=== PATIENT | male | born 1945 | race Native Hawaiian/Other Pacific Islander ===

== ENCOUNTER 2016-12-08 21:45 | Inpatient (IN) | payer OTHER, MEDICAID ==
[~2016-12-08] VITALS: Ht 157.5 cm; Wt 71.4 kg
[2016-12-08 21:57] VITALS: BP 185/82; PULSE 75; RESP 18; O2SAT 98
--- NOTE | 2016-12-08 22:09 | ED.REPORT ---
HPI-Dyspnea / Wheezing Date of Service Dec 08, 2016 ED Provider: Gage Jasso MD Pt is a 71 y/o male w/ a hx of hyperlipidemia, DM, presenting to the ED with family who interprets c/o sharp substernal CP onset this morning. The patient began coughing yesterday which has persisted. He states his pain radiates throughout his entire body as is describes as sharp and only occurs with coughing. He c/o associated mild subjective fever, chills, nausea, mild peripheral edema. He denies vomiting, hemoptysis, phlegm production. He has never experienced this type of pain before. He recently traveled from the [facility] 1 month ago and a doctor there apparently told him he had "fluid in his lungs" about 2 months ago. He has no personal or family history of cardiovascular disease. Nursing Notes Stated Complaint: CHEST PAIN,COUGH,SOB Chief Complaint: Chest Pain Nursing Notes Reviewed: Yes ([employer], meds not reconciled) Allergies: Coded Allergies: No Known Allergies (Unverified , 12/08/16) General Time Seen by MD: 22:05 Chief Complaint Chest pain Hx Obtained From: Patient, Other family... Arrived By: Walk-in Sudden in Onset?: No Onset Occurred: 9 - 12 hours ago Symptom Duration: Since onset Location: : Substernal Quality: Painful, Sharp Severity: Current: Mild Severity: Maximum: Moderate Past Medical History Past Medical History Hyperlipidemia DM Peripheral edema Past Surgical History Denies Family History No FHx of cardiac disease Smoking History Never Smoker Ambulatory Status Independent Review of Systems Constitutional: Reports: Chills, Fever Respiratory: Reports: Non-productive cough, Pleuritic pain, Denies: Hemoptysis, Prod cough, green, Prod cough, yellow, Shortness of breath Cardiovascular: Reports: Chest pain, Edema, Denies: Dyspnea on exertion Musculoskeletal: Reports: Extremity swelling Complete sys rev & neg: except as marked. GI: Reports: Nausea, Denies: Abdominal pain, Vomiting Physical Exam Initial Vital Signs Vital Signs (First) Date Time Temp Pulse Resp B/P Pulse Ox O2 Delivery O2 Flow Rate FiO2 12/08/16 21:57 37.6 75 18 185/82 98 Room Air Initial VS: Reviewed, Vital signs abnormal (HTN) Head / Eyes: Atraumatic, Normocephalic, PERRL ENT: Mucous membranes moist, Conjunctiva normal, No scleral icterus Abdomen / GI: Soft, Non-tender, No guarding, No rebound, No distention Skin: Warm, Dry, No cyanosis Neurologic: Alert, Oriented, Nonfocal Psychiatric: Mood/affect normal, Behavior normal, Normal thought content General/Constitutional: Awake, Alert, No acute distress, Cooperative, Not toxic appearing Neck: Atraumatic, Supple, No meningismus, Full range of motion Respiratory / Chest: Atraumatic, No respiratory distress, No retractions, No stridor Crackles and rhonchi about the entire left lung Cardiovascular: Heart rate NL, Regular rhythm, Heart sounds NL, No gallop, No murmurs, No rubs, Cap refill not delayed Trace edema in legs Lower Extremity / Pelvis / MS: No erythema, No deformity, Neurologic intact, Vascular intact Trace edema bilat No findings to suggest DVT Interpretation & Diagnostics Lab Results Interpretation Result Diagram: 12/08/16211412/08/162114 Test 12/08/16 21:15 12/09/16 00:30 White Blood Count 7.4th/mm3 (3.8-10.1) Red Blood Count 4.94mil/mm3 (4.40-5.80) Hemoglobin 13.2g/dL (13.8-17.2) Hematocrit 40.1% (41.0-50.0) Mean Corpuscular Volume 81.2fL (81-100) Mean Corpuscular Hemoglobin 26.7pg (27.0-35.0) Mean Corpuscular Hemoglobin Concent 32.9% (32.0-37.0) Red Cell Distribution Width 14.3% (12.3-15.4) Platelet Count 233bil/L (150-400) Neutrophils (%) (Auto) 62.7% (40-74) Lymphocytes (%) (Auto) 20.0% (14-46) Monocytes (%) (Auto) 9.5% (4-12) Eosinophils (%) (Auto) 7.1% (0-5) Basophils (%) (Auto) 0.4% (0-3) D-Dimer 0.58mg/L FEU (<0.50) Sodium Level 135mEq/L (134-144) Potassium Level 4.9mEq/L (3.5-5.2) Chloride Level 98mEq/L (97-108) Carbon Dioxide Level 24mmol/L (18-29) Blood Urea Nitrogen 27mg/dL (8-27) Creatinine 1.70mg/dL (0.76-1.27) Estimat Glomerular Filtration Rate 42mL/min (>59) Glucose Level 156mg/dL (60-99) Calcium Level 8.7mg/dL (8.5-10.1) Magnesium Level 2.0mg/dL (1.6-2.6) Total Bilirubin 0.2mg/dL (0.0-1.2) Aspartate Amino Transf (AST/SGOT) 30U/L (0-50) Alanine Aminotransferase (ALT/SGPT) 18U/L (0-44) Alkaline Phosphatase 94U/L (25-160) Pro-B-Type Natriuretic Peptide 539.7pg/mL (0-376) Total Protein 8.0g/dL (6.4-8.4) Albumin 3.6g/dL (3.4-5.0) Hold Ramos Top Tube Received (Received) Lab Results Interpretation: CBC normal limits and CMP positive renal insufficiency, and daily unknown Troponin marginally elevated, partially secondary to elevated creatinine D-dimer age adjusted negative BNP moderately elevated ECG Interpretation Time: 22:27 Interpreted by: ED physician Normal ECG Interpretation: Normal ECG w/ rate of... (70), Normal rate, Normal sinus rhythm, No acute ischemic changes, Normal QRS, Normal axis, Normal intervals, Adequate tracing X-Ray Chest Interpretation View: Portable, 1 view Interpretation / Wet Read by: Wet read ED physician NL X-Ray Chest Findings: No infiltrate, No acute disease Re-Eval/Medical Decision Med Decision/Clinical Course This is a 71-year-old male who just moved here 4 weeks ago from the [facility] and speaks Armenian. He is brought with a complaint of chest discomfort, difficulty breathing, and a cough. 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 Apparently the patient does have some sort of cardiac history with a doctor in the [facility]' having told "there is fluid on his lungs". His current medications include furosemide and simvastatin. He denies any new leg swelling, but apparently has developed some shortness of breath, a sharp atypical chest pain, and a cough over the past 24 hours. He denies a sense of fever, may possibly have had some chills. All in all the history is very challenging to be certain. The patient clinically appears well. There is some scattered rales and trace rhonchi at the left base I thought, but I do not appreciate an infiltrate or gross abnormality on his chest x-ray. EKG is normal, without acute ischemic changes. His blood work however is complicated in that he does have a marginally elevated troponin, but is in the setting of a creatinine of 1.7, which itself is unknown acuity. Additionally his BMP is elevated. I think the patient is low risk for PE, but given her recent flight to the from the [facility] , in the setting of difficult to sort out chest pain, shortness of breath I d- dimer was obtained, and was negative in the setting of age adjustment. Given the challenges in language barrier, given the findings of an elevated troponin, renal insufficiency, and elevated BNP, given aspirin, and initial dose of furosemide. I think the patient's best served by being observed for serial enzymes and repeat evaluation given I cannot exclude a cardiac etiology, although overall the definitive cause of symptoms remains a bit unclear. Source of Hx: Old records (none in EMR) Re-Evaluation/Progress : Time of Eval: 00:06 Re-Evaluation/Progress Note: Pt rechecked. Informed pt of need for admission. Pt understands and agrees with plan for admission. All questions addressed. 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: Will see patient, Agrees with eval, Agrees with plan, Accepts admit Differential Diagnosis: Negative: Cardiogenic shock, Congestive heart failure, Foreign body airway, Hyperventilation, Inhalation injury, PSVT, Pneumonia, Pneumothorax, Pulmonary embolism, Respiratory failure Counseled Regarding: Diagnosis, Lab results, Need for admission Discharge & Departure Impression: Primary Impression: Chest pain Chest pain type: unspecified Qualified Code: R07.9 - Chest pain, unspecified Additional Impressions: Elevated troponin HTN (hypertension) Hypertension type: unspecified secondary hypertension Qualified Code: I15.9 - Secondary hypertension, unspecified Cough Renal insufficiency Disposition: ADMITTED TO HOSPITAL Discharge Condition All VS Reviewed: Yes Condition: Stable Scribe Attestation Portions of this note were transcribed by Jose Daniel Downey. I, Dr. Jasso personally performed the history, physical exam and medical decision-making; I reviewed and confirmed the accuracy of the information in the transcribed note. Signed by Jann Briscoe, 12/08/16 - 2229 Gage Jasso MD Dec 08, 2016 22:09 JOSE DANIEL DOWNEY Dec 08, 2016 22:21
[2016-12-08 22:29] LABS: BASOPHILS % (AUTO) 0.4 % (0-3); EOSINOPHILS % (AUTO) 7.1 % (0-5); MONOCYTES % (AUTO) 9.5 % (4-12); Mean Corpuscular Hemoglobin 26.7 pg (27.0-35.0); Mean Corpuscular Volume 81.2 fL (81-100); NEUTROPHILS % (AUTO) 62.7 % (40-74); Platelet Count 233 bil/L (150-400)
[2016-12-08 22:51] LABS: TROPONIN T 0.017 ug/L (0.0-0.011)
[2016-12-09] VITALS (10 sets, daily range): BP systolic 141–188; BP diastolic 75–97; PULSE 70–103; RESP 14–26; O2SAT 93–100
[2016-12-09] MEDS ORDERED: Furosemide 10 mg/mL 2 mL Inj IVPUSH ONE
[2016-12-09] MEDS ORDERED: Ondansetron 2 mg/mL 2 mL Inj IVPUSH PRN (00:10)
[2016-12-09] MEDS ORDERED: Alum-Mag Hydrox-Simeth 30 mL Suspension PO PRN (00:10)
[2016-12-09] MEDS ORDERED: Polyethylene Glycol (PEG) 17 Gm Powder PO PRN (00:10)
[2016-12-09] MEDS ORDERED: Senna-Docusate 8.6-50 mg Tablet PO PRN (00:10)
[2016-12-09] MEDS ORDERED: Atropine 1 mg/10 mL (Code) Syringe IVPUSH PRN (00:10)
--- NOTE | 2016-12-09 01:06 | PCM.HPMED ---
Subjective Date of Service Dec 09, 2016 Primary Provider: Admitting Physician: Tres Plata MD Primary Care Physician: Zonia Mancini MD Attending Physician: Tres Plata MD Admit Status: From the Emergency Department, 23-Hour Observation, [facility] Telemetry Chief Complaint: Chest pain History of Present Illness: Albert Johnson is a 71 yo Malaysian man with Hyperlipidemia, Diabetes type 2 , presenting to [facility] emergency department with family who interprets c/o sharp substernal CP onset this morning. Patient noted to be poor historian and family reporting changing stories. Chest pain was reported to be sharp, substernal but patient also pointing to his upper abdomen with no radiation. Intensity was mild with no clear exacerbating or alleviating factors. There is some reported coughing with some subjective fever. He has never experienced this type of pain before. He also complained of body aches He recently traveled from the [facility] 1 month ago and a doctor there apparently told him he had "fluid in his lungs" about 2 months ago. He has no personal or family history of cardiovascular disease. Case discussed with Dr Jasso, some troponin elevation. Plan to admit patient to trend troponin overnight. Review of Systems: Pertinent positives as noted in HPI. All other systems were reviewed and are negative Allergies Coded Allergies: No Known Allergies (Unverified , 12/08/16) Home Medications List not available but family will bring it in the morning PMH Hypertension Diabetes type 2 with peripheral neuropathy Hyperlipidemia Possible Congestive heart failure (details unclear) . Surgical History toe amputation Family History No family history of heart disease Social History Hx Alcohol Use: No Hx Substance Use: No Hx Tobacco Use: No Smoking Status: Never Smoker Living Arrangement: with Family Exam Vital Signs Vital Sign - Last Date Time Temp Pulse Resp B/P Pulse Ox O2 Delivery O2 Flow Rate FiO2 12/09/16 00:00 37.2 70 26 180/80 97 Room Air Exam General: Alert, Oriented X3, Cooperative, No acute Distress Eyes: PERRLA, Scleral Anicteric Mouth: Mouth Normal, Mucous Membranes Moist/F[place]iday Neck: Supple, no Thyromegaly, trachea central. Chest & Lungs: Clear to auscultation & percussion, No adventitious breath sounds, no crackles, no wheeze Cardiovascular: Normal S1, Normal S2, No Murmurs/Rubs/Gallops, Regular Rate/ Rhythm, (No JVD, no peripheral edema) Pulses: Radial (present and equal), Dorsalis Pedi (present and equal) Abdomen: Soft, Non-tender, Non-distended, Normoactive bowel tones. Musculoskeletal: Unremarkable. Normal range of motion, no swollen or erythematous joints Extremities: No edema, no cyanosis, no clubbing. toe amputations without any ulcers Skin: No rashes. Warm and dry, no erythematous areas Neurological: Grossly neurologically intact, Normal Speech, Sensation Intact Lymphatic: Lymph nodes Cervical and Axillary not palpable. Lab and Diagnostics Labs Laboratory Tests Test 12/08/16 21:15 12/09/16 00:30 White Blood Count 7.4th/mm3 (3.8-10.1) Red Blood Count 4.94mil/mm3 (4.40-5.80) Hemoglobin 13.2g/dL (13.8-17.2) Hematocrit 40.1% (41.0-50.0) Mean Corpuscular Volume 81.2fL (81-100) Mean Corpuscular Hemoglobin 26.7pg (27.0-35.0) Mean Corpuscular Hemoglobin Concent 32.9% (32.0-37.0) Red Cell Distribution Width 14.3% (12.3-15.4) Platelet Count 233bil/L (150-400) Neutrophils (%) (Auto) 62.7% (40-74) Lymphocytes (%) (Auto) 20.0% (14-46) Monocytes (%) (Auto) 9.5% (4-12) Eosinophils (%) (Auto) 7.1% (0-5) Basophils (%) (Auto) 0.4% (0-3) D-Dimer 0.58mg/L FEU (<0.50) Sodium Level 135mEq/L (134-144) Potassium Level 4.9mEq/L (3.5-5.2) Chloride Level 98mEq/L (97-108) Carbon Dioxide Level 24mmol/L (18-29) Blood Urea Nitrogen 27mg/dL (8-27) Creatinine 1.70mg/dL (0.76-1.27) Estimat Glomerular Filtration Rate 42mL/min (>59) Glucose Level 156mg/dL (60-99) Calcium Level 8.7mg/dL (8.5-10.1) Magnesium Level 2.0mg/dL (1.6-2.6) Total Bilirubin 0.2mg/dL (0.0-1.2) Aspartate Amino Transf (AST/SGOT) 30U/L (0-50) Alanine Aminotransferase (ALT/SGPT) 18U/L (0-44) Alkaline Phosphatase 94U/L (25-160) Troponin T 0.017ug/L (0.0-0.011) Pro-B-Type Natriuretic Peptide 539.7pg/mL (0-376) Total Protein 8.0g/dL (6.4-8.4) Albumin 3.6g/dL (3.4-5.0) Hold Ramos Top Tube Received (Received) Result Diagram: 12/08/16211412/08/162114 Assessment & Plan Albert Johnson is a 71 yo Malaysian man with Hyperlipidemia, Diabetes type 2 , presenting to [facility] emergency department c/o sharp substernal Chest pain 1. Acute Chest pain. Present on admission Non ST elevation myocardial infarction is possible. Etiology unclear but has several risk factors acute coronary disease with age, Diabetes, Hypertension and Hyperlipidemia. EKG showed no ST elevation. Differential diagnosis includes Pulmonary embolism (D dimer correction for age is normal, ruling out Pulmonary embolism), Aortic dissection, Acute pancreatitis, GERD. - monitor on telemetry - checking Lipase - trending troponin - due to difficulty determine active symptoms maybe due to language barrier, anticoagulations have not been started - consider Stress test if troponin trends down - Cardiology consult may be needed in the morning to determine next step 2 Elevated troponin. Present on admission Probably demand ischemia but early Non ST elevation Myocardial infarction is also possible given risk factors. Also could be related to the setting of elevated Cr with renal disease. trending cardiac biomarkers complete echo 3 Uncontrolled Hypertension. Present on admission Likely due to non compliance with medications and low sodium diet - will continue Lisinopril while avoid beta blockers in the event patient undergoes a stress test 4 Possible Acute Kidney injury. Present on admission Due to pre renal azotemia. Possible Chronic kidney disease due to Diabetic nephropathy and Hypertensive nephrosclerosis Unclear of baseline renal function - avoid nephrotoxic insults 5 Diabetes Type 2 with peripheral neuropathy - low correction Lispro algorithm - checking A1c 6 Hyperlipidemia - checking lipids - Acetaminophen as needed for mild pain/fever/headache - Bowel regimen as needed - Antiemetic as needed Patient is admitted under observation status with expected length of stay less than 2 midnights due to severity of presenting symptoms, risk of adverse event, and complexity of treatment plan. . Resuscitation Status: CPR: Attempt Resuscitation rTes Plata MD Dec 09, 2016 00:54
[2016-12-09 01:21] LABS: TROPONIN T 0.013 ug/L (0.0-0.011)
[2016-12-09 01:25] LABS: Creatine Kinase 294 U/L (21-232)
[2016-12-09] MEDS: 0.9% Sodium Chloride 1,000 ML IV SCH ×3 (01:33→18:24)
[2016-12-09] MEDS: Sodium Chloride LOK Flush 10 mL Syringe IVFLUSH SCH ×3 (01:34→16:30)
[2016-12-09] MEDS ORDERED: Dextrose 10% 250 ML IV PRN (02:05)
[2016-12-09] MEDS ORDERED: Glucose 40% Oral Gel 15 Gm Tube PO PRN (02:05)
[2016-12-09] MEDS ORDERED: FUR20 PO (02:12)
[2016-12-09] MEDS ORDERED: SIMV20TA4 PO (02:12)
[2016-12-09] MEDS: Heparin 5,000 Unit/mL Inj SUBQ SCH ×3 (02:49→16:30)
[2016-12-09 03:00] LABS: APPEARANCE,URINE CLEAR (CLEAR,HAZY); COLOR,URINE STRAW (YELLOW); OCCULT BLOOD,URINE TRACE (NEGATIVE); UROBILINOGEN,URINE NORMAL (NORMAL)
--- NOTE | 2016-12-09 05:04 | NUR ---
Admission Admitted to room 2028 , admission interview done with help of family, Med Req consisted of 2 medications, Patient from [facility] doesn't speak Kiswahili , seems in good spirits, UA done and sent, NS& 80. Room Air/ A^O x3 using call light appropriately. Telemetry: SR [id number]
[2016-12-09 06:13] LABS: BASOPHILS % (AUTO) 0.5 % (0-3); EOSINOPHILS % (AUTO) 6.7 % (0-5); MONOCYTES % (AUTO) 7.4 % (4-12); Mean Corpuscular Hemoglobin 26.3 pg (27.0-35.0); Mean Corpuscular Volume 81.4 fL (81-100); NEUTROPHILS % (AUTO) 65.9 % (40-74); Platelet Count 219 bil/L (150-400)
[2016-12-09 06:34] LABS: TROPONIN T 0.016 ug/L (0.0-0.011)
[2016-12-09 06:41] LABS: Creatine Kinase 267 U/L (21-232)
--- NOTE | 2016-12-09 08:17 | DRSVH ---
PROCEDURE: X-RAY CHEST ONE VIEW, PORTABLE ([id number]) INDICATIONS: CHEST PAIN TECHNIQUE: One view of the chest was acquired. COMPARISON: None. FINDINGS: Surgical changes and devices: None. Lungs and pleura: No pleural effusions or pneumothorax. Lungs are clear. Mediastinum: Mediastinal contours appear normal. Heart size is normal. Bones and chest wall: No suspicious bony lesions. Overlying soft tissues appear unremarkable. IMPRESSION: 1. No acute cardiopulmonary disease. Dictated by: Guanaco Garcia M.D. on 12/09/2016 at 8:15 Approved by: Guanaco Garcia M.D. on 12/09/2016 at 8:15
[2016-12-09] MEDS: Insulin LISPRO 300 Unit/3 mL Inj SUBQ SCH ×4 (08:58→21:30)
--- NOTE | 2016-12-09 10:56 | DRSVH ---
[facility] [address] [place] [address] Echocardiogram Report Name: MANNIE RUVALCABA Study Date: 12/09/2016 Height: 62 in Hospital Exam Location: [facility] Weight: 157 lb Gender: Male BSA: 1.7 m2 : 1945 Age: 71 yrs BP: 161/75 mmHg Reason For Study: Chest pain Ordering Physician: Performed By: Chhaya Chu Referring Physician: Zonia Mancini Interpretation Summary Left ventricular wall thickness is mildly increased. The ejection fraction is estimated to be 60-65%. There is a trace or physiologic amount of tricuspid regurgitation. The right ventricular systolic pressure is estimated at 48 mmHg assuming a right atrial pressure of 3 mm Hg. Procedure: A two-dimensional transthoracic echocardiogram with color flow and Doppler was performed. The study quality was technically adequate. There is no prior echocardiogram noted for this patient. The patient was in normal sinus rhythm during the exam. Left Ventricle: Left ventricular wall thickness is mildly increased. The left ventricle is normal in size. The ejection fraction is estimated to be 60 -65%. There are no focal wall motion abnormalities. Assessment of diastolic parameters indicates a relaxation abnormality of the left ventricle, consistent with normal filling pressures. Right Ventricle: The right ventricle is normal in size and function. Atria: Both atria are normal in size. There is no Doppler evidence for an interatrial shunt. Mitral Valve: The mitral valve leaflets are slightly calcified. There is trace mitral regurgitation. Aortic Valve: The aortic valve is normal in structure and function. The aortic valve is slightly calcified. No aortic regurgitation is present. Tricuspid Valve: The tricuspid valve is normal in structure and function. There is a trace or physiologic amount of tricuspid regurgitation. The right ventricular systolic pressure is estimated at 48 mmHg assuming a right atrial pressure of 3 mm Hg. Pulmonic Valve: The pulmonic valve is not well seen, but is grossly normal. There is no pulmonic valvular regurgitation. Great Vessels: The aortic root is normal size. The ascending aorta is normal in size. The aortic arch could not be visualized. The IVC is of normal diameter and collapses greater than 50% with a sniff. This suggests a low right atrial pressure of 3 mm Hg. Pericardium/ Pleura There is no pericardial effusion. MMode/2D Measurements & Calculations LVIDd: 4.2 cm RA long axis LVOT diam LVIDs: 3.0 cm LA A2 area: 18.2 cm FS: 29.7 % LA A4 area: 15.5 cm RA area AoV Opening EPSS: 0.72 cm LA length (vol): 5.7 cm IVSd: 1.3 cm LA vol: 42.0 ml : 10.3 cm Ao root diam LVPWd: 1.1 cm LA vol index RA vol : 20.4 ml Aortic Jxn : 24.4 ml/m2 RA : 11.8 mm2 asc Aorta Diam: 3.2 cm LV montague. diameter/BSA LV sys. diameter/BSA RVD1 (basal) TAPSE: 2.2 cm (cm/m^2): 2.5 (cm/m^2): 1.7 Doppler Measurements & Calculations Ao V2 max MV E max ramirez MV E/A: 0.84 TR max ramirez : 161.3 cm/sec : 99.9 cm/sec Med Peak E' Ramirez : 336.3 cm/sec Ao max PG MV A max ramirez TR max PG : 10.4 mmHg : 119.6 cm/sec E/E' med: 15.4 : 45.2 mmHg Ao mean PG MV P1/2t: 46.5 msec Lat Peak E' Ramirez PA V2 max : 97.3 cm/sec LVOT Max Ramirez E/E' lat: 11.3 PA mean PG : 100.0 cm/sec E/e' average PA Accel Time IBRAHIMA(I,D): 2.4 cm : 0.13 sec sev ratio MV dec time MV P1/2t max ramirez Ao V2 mean LV V1 max PG : 0.15 sec : 107.9 cm/sec MVA(P1/2t): 4.7 cm2 Ao V2 VTI: 29.5 cmLV V1 VTI IBRAHIMA(V,D): 2.2 cm2 : 20.4 cm PA V2 mean IBRAHIMA indexed to BSA : 70.9 cm/sec (cm^2/m^2): 1.4 Electronically signed by: Venkata Munroe on Reading Physician:12/09/2016 10:55 AM
--- NOTE | 2016-12-09 11:21 | PCM.PNMED ---
Subjective Date of Service Dec 09, 2016 Venus Johnson is a 71 yo [place] man with Hyperlipidemia, Diabetes type 2 , presenting to [facility] emergency department with family who interprets c/o sharp substernal CP onset this morning. He reports epigastric and throat pain this morning. He also has a cough that is chronic. He does not feel like he has trouble breathing. This evening, he reported epigastric pain in a band associated with coughing. He also has nausea and chills. Exam Vital Signs Vital Sign - Last Date Time Temp Pulse Resp B/P Pulse Ox O2 Delivery O2 Flow Rate FiO2 12/09/16 08:45 37.3 92 18 160/91 97 Room Air Intake and Output 12/08/16 12/08/16 12/09/16 Cumulative From/Thru 15:00 23:00 07:00 12/08/16 21:57 - 12/09/16 06:25 Intake Total 403 ml 403 ml Output Total 600 ml 600 ml Balance -197 ml -197 ml Intake Oral 100 ml 100 ml IV Total 303 ml 303 ml Output Urine Total 600 ml 600 ml Exam General: Alert, Oriented X3, Cooperative, No acute Distress Eyes: PERRLA, Scleral Anicteric Mouth: Mouth Normal, Mucous Membranes Moist/[place] Neck: Supple, no Thyromegaly, trachea central. Chest & Lungs: Clear to auscultation & percussion, No adventitious breath sounds, no crackles, no wheeze Cardiovascular: Normal S1, Normal S2, No Murmurs/Rubs/Gallops, Regular Rate/ Rhythm, (No JVD, no peripheral edema) Pulses: Radial (present and equal), Dorsalis Pedi (present and equal) Abdomen: Soft, Non-distended, Normoactive bowel tones. Musculoskeletal: Unremarkable. Normal range of motion, no swollen or erythematous joints Extremities: No edema, no cyanosis, no clubbing. bilateral toe amputations at left 2nd digit and right first digit without any ulcers Skin: No rashes. Warm and dry, no erythematous areas Neurological: Grossly neurologically intact, Normal Speech, Sensation Intact Lymphatic: Lymph nodes Cervical and Axillary not palpable. This evening: Cardiovascular: Tachycardic with regular rhythm. No murmurs, rubs, or gallops. Pulmonary: Clear to auscultation bilaterally with increased respiratory effort. Abdomen: Tender epigastric and suprapubic without rebound or guarding. Normoactive bowel sounds. IVs and Medications Medications Reviewed: Medications were reviewed in detail Lab and Diagnostics Result Diagram: 12/09/16 0557 12/09/16 0557 X-Rays, CTs and MRIs PROCEDURE: X-RAY CHEST ONE VIEW, PORTABLE 1. No acute cardiopulmonary disease. Approved by: Guanaco Garcia M.D. on 12/09/2016 at 8:15 Cardiac Echo Impressions Echocardiogram Report Interpretation Summary Left ventricular wall thickness is mildly increased. The ejection fraction is estimated to be 60-65%. There is a trace or physiologic amount of tricuspid regurgitation. The right ventricular systolic pressure is estimated at 48 mmHg assuming a right atrial pressure of 3 mm Hg. Electronically signed by: Venkata Munroe on Reading Physician:12/09/2016 10:55 AM Assessment & Plan Albert Johnson is a 71 yo Tong[place] man with Hyperlipidemia, Diabetes type 2 , presenting to [facility] emergency department c/o sharp substernal Chest pain Possible system inflammatory response syndrome, not present on admission, active. - Met criteria with reported temperature 38 degrees C and HR 110 - No clear source of infection at this time. Pt reports nausea and chills with abdominal tenderness at epigastric and suprapubic. He also has a productive cough. CXR did not show acute pulmonary changes. His UA was not indicative of a UTI. - Lactic acid, procalcitonin, blood cultures, sputum cultures, and MRSA screen ordered - Increased normal saline to 100 ml/hour - Started Unasyn for broad coverage - If Cr is 1.5 or less, will order CT chest, abdomen, and pelvis with contrast Acute Chest pain. Present on admission Etiology unclear but has several risk factors acute coronary disease with age, Diabetes, Hypertension and Hyperlipidemia. EKG showed no ST elevation. Differential diagnosis includes Pulmonary embolism (D dimer correction for age is normal, ruling out Pulmonary embolism), Aortic dissection, Acute pancreatitis , GERD. - lipase negative - trended troponin which was mildly elevated but normal cardiac stress test and echocardiogram. echocardiogram did not show any areas of hypokinesis or a decreased EF - due to difficulty determine active symptoms maybe due to language barrier, anticoagulations have not been started - Famotidine 20 mg BID - Cardiology consulted. Their time and recommendations were appreciated. Uncontrolled Hypertension. Present on admission Likely due to non compliance with medications and low sodium diet - Will add beta sabina Possible Acute Kidney injury. Present on admission Due to pre renal azotemia. Possible Chronic kidney disease due to Diabetic nephropathy and Hypertensive nephrosclerosis Unclear of baseline renal function - avoid nephrotoxic insults Diabetes Type 2 with peripheral neuropathy - low correction Lispro algorithm with 5 units insulin glargine at bedtime - checking A1c Elevated troponin. Present on admission Could be related to the setting of elevated Cr with renal disease. -complete echocardiogram and stress test as above Hyperlipidemia - checking lipids - switched to atorvastatin 10 mg at bedtime from home simvastatin - Acetaminophen as needed for mild pain/fever/headache - Bowel regimen as needed - Antiemetic as needed Pain Evaluation: Adequate Pain Control Resuscitation Status: CPR: Attempt Resuscitation Attending Statement The patient was seen and examined together with Dr. Kline on 12/09/2016 and I agree with the history, exam and plan as outlined in the note above. . Lita Kline DO Dec 09, 2016 11:21 Jean Butts MD Dec 10, 2016 17:30
--- NOTE | 2016-12-09 12:02 | NUR ---
spiritual care; pt request brief introductory visit. family member translated simple introduction and indicated other family would be at bedside throughout day. Related that hospital translation service available. pt appeared comfortable, was resting with blanket over his head.
[2016-12-09] MEDS ORDERED: Albuterol 2.5 mg/3 mL Inhalation Solution NEB ONE (15:23)
--- NOTE | 2016-12-09 16:13 | NUR ---
Social Work: Attempted Assessment D: FASHION SUPERVISOR attempted to meet with pt at bedside to complete assessment. Pt is off the floor for a stress test. Family at bedside who states pt lives with his daughter and her family. Pt is I with ADLs at baseline and uses a cane for ambulation. They are requesting FASHION SUPERVISOR come back later when pt is present. FASHION SUPERVISOR agreed. A: Pt who is I at baseline and ambulating I during admission. P: Anticipate pt to likely discharge home via POV once medically stable; FASHION SUPERVISOR to attempt to follow up with pt and family when pt is present. KILEY Edwards
--- NOTE | 2016-12-09 17:12 | DRSVH ---
PROCEDURE: 1 DAY PHARMACOLOGICAL STRESS TEST Rest and pharmacological stress myocardial perfusion SPECT with gated imaging and ejection fraction RADIOPHARMACEUTICAL: 8.6 mCi Tc-99m tetrafosmin IV at rest and 25.0 mCi Tc-99m tetrafosmin IV at peak effect of pharmacological stress. A [id number] was performed. INDICATIONS: 71 year-old male with type 2 diabetes, hyperlipidemia, presents with sharp substernal ch est pain. TECHNIQUE: Radiopharmaceutical was injected at peak stress test, and also at rest. SPECT images wer e obtained. SPECT myocardial perfusion images were displayed in short axis, horizontal long axis, an d vertical long axis views. Gated images were reviewed using mNectarQUANT software. COMPARISON: None. CARDIAC STRESS: A pharmacologic stress test was performed under the supervision of an attending staff, using an infus ion of [place]. Hemodynamic data: There is normal blood pressure and heart rate response to pharmacologic stress. Symptoms: The patient denied anginal chest pain. Aminophylline: Not needed. EKG: No diagnostic changes of ischemia; no ectopy. FINDINGS: Raw data: There is good myocardial uptake of radiotracer. No significant motion artifacts. Left ventricle function: Gated images demonstrate normal left ventricular wall thickening. No segme ntal wall motion abnormalities. No transient ischemic dilation. Left ventricle resting end diastoli c volume is 60 mL. Left ventricle stress ejection fraction is 68%; normal range is above 45%. Myocardial perfusion: There is mildly decreased tracer uptake within the basal inferior wall on both stress and resting images. Finding normalize on corresponding stress prone imaging. There is otherwi se normal distribution of activity in the right and left ventricular myocardium. No suspicious fixed or reversible perfusion defects. IMPRESSION: 1. Normal myocardial perfusion study for ischemia. Mildly decreased tracer uptake within the basal in ferior wall normalizes on prone imaging, therefore consistent with diaphragmatic attenuation artifact rather than true pathology. 2. Normal left ventricle cavity size, without segmental wall motion abnormalities. The calculated lef t ventricle ejection fraction is within normal limits. 3. Expected hemodynamic response to pharmacologic stress testing. PQRS ATTESTATIONS: Measure 322 - Is this imaging test primarily performed on a low-risk surgery patient for preoperative evaluation within 30 days preceding their low-risk non-cardiac surgery? Low-risk surgery is defined as cardiac or myocardial infarction less than 1%, including (but not limited to) endoscopic pr ocedures, superficial procedures, cataract surgery, and excisional breast surgery: Answer: No Measure 323 - Is this imaging test performed primarily for the monitoring of an asymptomatic patient who had percutaneous coronary intervention on the visit date or within 2 years of the visit date? An swer: No Measure 324 - Is this imaging test performed primarily for the initial detection and risk assessment on an asymptomatic, low coronary heart disease patient? Low CHD risk definition = clinicians should consider the maximum number of available patient factors used to estimate risk based on [place] (A TP III criteria), typically age, gender, diabetes, smoking status, and use of blood pressure medicati on, and integrate age appropriate estimates for missing elements, such as LDL or standard blood press ure. Answer: No Dictated by: Gage Scott M.D. on 12/09/2016 at 17:02 Approved by: Gage Scott M.D. on 12/09/2016 at 17:09
--- NOTE | 2016-12-09 18:27 | NUR ---
Feeling poorly this evening, c/o chills and nausea, HR 110, temp 38.0 reported to MD. Medicated with Zofran, IVFs infusing. BP stable. Persisting intermittent cough, no sputum observed. Insulin coverage for elevated blood sugars. Reports pain (chest) with cough only. Supportive Mold[place]-Welsh speaking family at bedside. Cardiac stress test done today. Sinus rhythm/tach on tele. MD updated.
[2016-12-09] MEDS ORDERED: 0.9% Sodium Chloride 500 ML IV ONE (20:25)
[2016-12-09] MEDS ORDERED: Ampicillin-Sulbactam Inj 3,000 MG in 0.9% Sodium Chloride 100 ML IV SCH (20:30)
[2016-12-09] MEDS ORDERED: Insulin GLARgine 100 Unit/mL Syringe SUBQ SCH (21:00)
[2016-12-09] MEDS: Ampicillin-Sulbactam Inj 3,000 MG in 0.9% Sodium Chloride 100 ML IV SCH (21:29)
[2016-12-10] VITALS (10 sets, daily range): BP systolic 135–159; BP diastolic 69–81; PULSE 68–97; RESP 16–24; O2SAT 91–97
[2016-12-10] MEDS: Sodium Chloride LOK Flush 10 mL Syringe IVFLUSH SCH ×3 (00:30→16:30)
[2016-12-10] MEDS: Heparin 5,000 Unit/mL Inj SUBQ SCH ×3 (00:30→16:30)
[2016-12-10 04:43] LABS: BASOPHILS % (AUTO) 0.3 % (0-3); EOSINOPHILS % (AUTO) 0.8 % (0-5); Mean Corpuscular Hemoglobin 26.5 pg (27.0-35.0); Mean Corpuscular Volume 80.7 fL (81-100); Platelet Count 202 bil/L (150-400)
[2016-12-10] MEDS: Ampicillin-Sulbactam Inj 3,000 MG in 0.9% Sodium Chloride 100 ML IV SCH ×2 (04:58→10:55)
--- NOTE | 2016-12-10 05:42 | NUR ---
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 Pt has chills with the low grade fever. Pt's HS BG was 270 and pt received 2 units Lispro and 5 units Lantus. Pt had an ABD CT with oral contrast and results are pending when the CT is read this AM.
--- NOTE | 2016-12-10 08:22 | DRSVH ---
PROCEDURE: CT CHEST, ABDOMEN AND PELVIS [facility] ([id number]) INDICATIONS: fever, cough, nausea, abdominal pain TECHNIQUE: After the administration of oral and intravenous contrast, 5 mm thick sections acquired from the lung apices to the symphysis. 5 mm coronal and sagittal reformats were performed, with additional 7 mm c oronal MIP reformats through the lungs. For radiation dose reduction, the following was used: autom ated exposure control, adjustment of mA and/or kV according to patient size. COMPARISON: None. FINDINGS: Image quality: Excellent. CHEST: Lungs and pleura: Patchy airspace opacities are noted in the left upper lobe concerning for pneumonia . 4 mm subpleural nodule noted in the right lower lobe (series 6, image 21). No pleural effusions or pneumothorax. Central and peripheral airways appear patent and normal in caliber. Mediastinum: Heart size is normal. No pericardial effusion. No mediastinal or hilar adenopathy by size criteria. Thoracic aorta and central pulmonary arteries are normal in size. Esophagus is kacie l in caliber. No hiatal hernia. Chest wall: No axillary or supraclavicular adenopathy by size criteria. Thyroid gland contains a 7 mm diameter hypoattenuating nodule in the left lobe.. ABDOMEN: Solid organs: Liver and spleen are normal in size and enhancement. Gallbladder is within normal rosales its. Biliary system is non dilated. Pancreas enhances normally. No adrenal nodules. Kidneys demon strate normal size and enhancement, without hydronephrosis. Peritoneum and bowel: Small hiatal hernia is noted. Bowel loops demonstrate normal wall thickness an d caliber. No free fluid or air. The appendix is normal Nodes and vessels: No retroperitoneal or mesenteric adenopathy by size criteria. Aorta and inferior vena cava are normal in size. Scattered atherosclerotic calcifications involving the abdominal and p elvic vasculature. Miscellaneous: No ventral hernias. PELVIS: Genitourinary: Bladder wall thickness is normal. Miscellaneous: No inguinal hernias or adenopathy. Bones: No suspicious bony lesions. No vertebral body compression fractures. Spine degenerative disc disease and facet arthropathy. IMPRESSION: 1. Patchy airspace opacities in the left upper lobe suspicious for pneumonia. 2. 4 mm right lower lobe nodule. Recommend followup imaging based on criteria outlined below. 3. Small hiatal hernia. 4. Atherosclerosis. 5. 7 mm left thyroid nodule. Fleischner Society criteria for SOLID lung nodule followup. Nodule size (mm)Low-risk patientHigh-risk patient<6 (single or multiple)No routine followup.Optional CT at 12 months. 6-8 (single or multiple)CT at 6-12 months, then optional CT at 18-24 mo.CT at 6-12 m onths, then CT at 18-24 months. >8 (single)CT, PET-CT, or biopsy at 3 months. Same as for low-risk p ts. >8 (multiple)CT at 3-6 months, then optional CT at 18-24 mo.CT at 3-6 months, then CT at 18-24 m onths. Recommendations do not apply to lung cancer screening, patients with immunosuppression, or patients w ith known primary cancer. Dictated by: Zoraida Santana MD, PhD on 12/10/2016 at 8:14 Approved by: Zoraida Santana MD, PhD on 12/10/2016 at 8:20
--- NOTE | 2016-12-10 10:26 | NUR ---
Social Work: Initial Assessment D: Per EMR review, pt is a 71 year old male admitted for chest pain, resolved. Pt insurance is [employer]. Pt denies any Medicare Coverage, LTC insurance or VA Benefits. PCP is Zonia Mancini MD. NOK is Jessie Moon, dtr, . Advanced directives info declined by pt. No RA score entered. DATABASE REPORTING CONSULTANT met with pt and family at bedside. Pt and family declined fingerprinter and family provided translation services to the patient. Sw role explained and contact info provided. See initial assessment. Pt lives in [place] with his daughter. Pt is I at baseline and uses a cane for ambulation. Pt has never had HH or Skilled Rehab. Pt does not drive and relies on family for transport. Pt and family anticipate pt will discharge home when medically stable. DATABASE REPORTING CONSULTANT inquired about pt's status with Medicare. Pt states he has not applied for Medicare. DATABASE REPORTING CONSULTANT provided pt with information for the [facility]) as pt is of age for Medicare benefits and encouraged him and family to follow up to determine if pt qualifies for Medicare coverage. Pt discussed with MD team in am rounds. Pt will require another 1-2 days of hospitalization as his A1C was elevated and will need to work to control sugar levels before discharge. MD anticipates no social work needs at discharge. A: Pt who is I at baseline. P: Anticipate pt to discharge home via POV once medically stable; DATABASE REPORTING CONSULTANT to continue to follow. KILEY Edwards Addendum: 12/10/16 at 1033 by MARÍA GREENE Amended: Links added.
[2016-12-10] MEDS: Insulin LISPRO 300 Unit/3 mL Inj SUBQ SCH ×3 (10:56→21:01)
[2016-12-10] MEDS: Albuterol-Ipratropium 3 mL Inhalation Solution NEB SCH ×3 (11:00→22:20)
[2016-12-10] MEDS: cefTRIAXone Inj 2,000 MG in Dextrose 5% Minibag Plus 50 ML IV SCH (11:45)
[2016-12-10] MEDS ORDERED: 0.9% Sodium Chloride 250 ML ONE (13:06)
--- NOTE | 2016-12-10 15:34 | PCM.PNMED ---
Subjective Date of Service Dec 10, 2016 Subjective Albert Johnson is a 71 yo [place]an man with Hyperlipidemia, Diabetes type 2 , presenting to [facility] emergency department with family who interprets who presented for chest pain. This morning, he has left shoulder pain and epigastric pain. He no longer has nausea. He has a cough and sore throat. Exam Vital Signs Vital Sign - Last Date Time Temp Pulse Resp B/P Pulse Ox O2 Delivery O2 Flow Rate FiO2 12/10/16 12:29 37.5 80 22 144/70 91 Room Air Intake and Output 12/09/16 12/09/16 12/10/16 Cumulative From/Thru 15:00 23:00 07:00 12/08/16 21:57 - 12/10/16 06:35 Intake Total 1236 ml 1548 ml 3187 ml Output Total 1000 ml 350 ml 1950 ml Balance 236 ml 1198 ml 1237 ml Intake Oral 436 ml 600 ml 1136 ml IV Total 800 ml 948 ml 2051 ml Output Urine Total 1000 ml 350 ml 1950 ml # Voids 1 1 Exam General: Alert, Oriented X3, Cooperative, No acute Distress Eyes: PERRLA, Scleral Anicteric Mouth: Mouth Normal, Mucous Membranes Moist/[place] Neck: Supple, no Thyromegaly, trachea central. Chest & Lungs: End expiratory wheezing in upper lung golden with coarse rhonchi left lower lobe. Cardiovascular: Normal S1, Normal S2, No Murmurs/Rubs/Gallops, Regular Rate/ Rhythm, (No JVD, no peripheral edema) Pulses: Radial (present and equal), Dorsalis Pedi (present and equal) Abdomen: Soft, Mildy tender in epigastric area. Non-distended, Normoactive bowel tones. Musculoskeletal: Unremarkable. Normal range of motion, no swollen or erythematous joints Extremities: No edema, no cyanosis, no clubbing. bilateral toe amputations at left 2nd digit and right first digit without any ulcers Skin: No rashes. Warm and dry, no erythematous areas Neurological: Grossly neurologically intact, Normal Speech, Sensation Intact IVs and Medications Medications Reviewed: Medications were reviewed in detail Lab and Diagnostics Result Diagram: 12/10/16 0420 12/10/16 0420 X-Rays, CTs and MRIs PROCEDURE: X-RAY CHEST ONE VIEW, PORTABLE 1. No acute cardiopulmonary disease. Approved by: Guanaco Garcia M.D. on 12/09/2016 at 8:15 PROCEDURE: 1 DAY PHARMACOLOGICAL STRESS TEST IMPRESSION: 1. Normal myocardial perfusion study for ischemia. Mildly decreased tracer uptake within the basal inferior wall normalizes on prone imaging, therefore consistent with diaphragmatic attenuation artifact rather than true pathology. 2. Normal left ventricle cavity size, without segmental wall motion abnormalities. The calculated left ventricle ejection fraction is within normal limits. 3. Expected hemodynamic response to pharmacologic stress testing. Approved by: Gage Scott M.D. on 12/09/2016 at 17:09 PROCEDURE: CT CHEST, ABDOMEN AND PELVIS WT CONTRAST IMPRESSION: 1. Patchy airspace opacities in the left upper lobe suspicious for pneumonia. 2. 4 mm right lower lobe nodule. Recommend followup imaging based on criteria outlined below. 3. Small hiatal hernia. 4. Atherosclerosis. 5. 7 mm left thyroid nodule. Fleischner Society criteria for SOLID lung nodule followup. Nodule size (mm)Low-risk patientHigh-risk patient<6 (single or multiple)No routine followup.Optional CT at 12 months. 6-8 (single or multiple)CT at 6-12 months, then optional CT at 18-24 mo.CT at 6-12 months, then CT at 18-24 months. >8 (single)CT, PET-CT, or biopsy at 3 months. Same as for low-risk pts. >8 (multiple)CT at 3-6 months, then optional CT at 18-24 mo.CT at 3-6 months, then CT at 18-24 months. Recommendations do not apply to lung cancer screening, patients with immunosuppression, or patients with known primary cancer. Approved by: Zoraida Santana MD, PhD on 12/10/2016 at 8:20 Cardiac Echo Impressions Echocardiogram Report Interpretation Summary Left ventricular wall thickness is mildly increased. The ejection fraction is estimated to be 60-65%. There is a trace or physiologic amount of tricuspid regurgitation. The right ventricular systolic pressure is estimated at 48 mmHg assuming a right atrial pressure of 3 mm Hg. Electronically signed by: Venkata Munroe on Reading Physician:12/09/2016 10:55 AM Assessment & Plan Albert Johnson is a 71 yo [place] L[place] man with Hyperlipidemia, Diabetes type 2 , presenting to [facility] emergency department c/o sharp substernal Chest pain Possible sepsis, not present on admission, improved. - Met criteria with reported temperature 38 degrees C and HR 110 - Probable community acquired pneumonia. Pt reports nausea and chills with abdominal tenderness at epigastric and suprapubic. He also has a productive cough. CXR did not show acute pulmonary changes. His UA was not indicative of a UTI. - Lactic acid, procalcitonin, blood cultures, sputum cultures, and MRSA screen ordered - Discontinued normal saline - Stopped Unasyn and switched to ceftriaxone and azithromycin Probable community acquired pneumonia, acute, active. - CT scan shows left upper lobe infiltrate and patient reports coughing. - Sputum culture, viral PCR, Strep pneumo antigen, and legionella antigen ordered - Ceftriaxone 2 g every 24 hours and azithromycin 500 mg once daily started - DuoNebs scheduled Gastroesophageal reflux disease, likely chronic, active. - Pt also reported nausea and has epigastric tenderness on exam. Small hiatal hernia seen on CT - Famotidine 20 mg BID Diabetes Type 2 with peripheral neuropathy - high dose correctional Lispro algorithm with 10 units insulin glargine at bedtime - HgbA1c 12.9% - Diabetes education Uncontrolled Hypertension. Present on admission Likely due to non compliance with medications and low sodium diet - Amlodipine 10 mg once daily - Consider adding an KIM inhibitor since patient is diabetic Possible Acute Kidney injury. Present on admission, improving Due to pre renal azotemia. Possible Chronic kidney disease due to Diabetic nephropathy and Hypertensive nephrosclerosis Unclear of baseline renal function - avoid nephrotoxic insults Acute Chest pain. Present on admission, resolved. Etiology unclear but most likely secondary to pneumonia and GERD. - lipase negative - trended troponin which was mildly elevated but normal cardiac stress test and echocardiogram. echocardiogram did not show any areas of hypokinesis or a decreased EF Elevated troponin. Present on admission In the setting of elevated Cr with renal disease. -complete echocardiogram and stress test as above Hyperlipidemia - checking lipids - switched to atorvastatin 10 mg at bedtime from home simvastatin Left thyroid nodule and right lower lobe lung nodule visualized on CT scan - Follow up as outpatient - Acetaminophen as needed for mild pain/fever/headache - Bowel regimen as needed - Antiemetic as needed Pain Evaluation: Adequate Pain Control Resuscitation Status: CPR: Attempt Resuscitation Attending Statement The patient was seen and examined together with Dr. Kline on 12/10/2016 and I agree with the history, exam and plan as outlined in the note above. . Lita Kline DO Dec 10, 2016 14:47 Jean Butts MD Dec 10, 2016 17:32
--- NOTE | 2016-12-10 21:00 | NUR ---
Max temp 37.8 dayshift Pt now able to ambulate w/ assist in lewis for short period, as well as @ bedside. Exertional dyspnea present; rm air sat 95%. Orders implemented regarding change in antibiotics. Appetite remains poor; family bringing in pt's preferred food to entice him to eat. Continue to monitor closely.
[2016-12-10] MEDS: Insulin GLARgine 100 Unit/mL Syringe SUBQ SCH (21:01)
[2016-12-11] VITALS (12 sets, daily range): BP systolic 143–172; BP diastolic 72–84; PULSE 76–99; RESP 16–22; O2SAT 92–97
[2016-12-11] MEDS: Heparin 5,000 Unit/mL Inj SUBQ SCH ×3 (00:30→18:30)
[2016-12-11] MEDS: Sodium Chloride LOK Flush 10 mL Syringe IVFLUSH SCH ×3 (00:30→18:30)
[2016-12-11 05:07] LABS: BASOPHILS % (AUTO) 0.2 % (0-3); EOSINOPHILS % (AUTO) 1.1 % (0-5); Mean Corpuscular Hemoglobin 26.4 pg (27.0-35.0); Mean Corpuscular Volume 79.6 fL (81-100); NEUTROPHILS % (AUTO) 75.4 % (40-74); Platelet Count 193 bil/L (150-400)
--- NOTE | 2016-12-11 05:39 | NUR ---
Temperature/BGs/Pain Pt has been afebrile the entire shift. Pt has had the chills one time during the night and when temperature was taken the pt was 37.2. Pt's HS BG was 136 and no sliding scale insulin was administered. Pt has had no c/o pain during the shift.
[2016-12-11] MEDS: Albuterol-Ipratropium 3 mL Inhalation Solution NEB SCH ×3 (08:55→17:34)
[2016-12-11] MEDS: Insulin LISPRO 300 Unit/3 mL Inj SUBQ SCH ×4 (09:41→22:00)
[2016-12-11] MEDS: cefTRIAXone Inj 2,000 MG in Dextrose 5% Minibag Plus 50 ML IV SCH (12:40)
[2016-12-11] MEDS ORDERED: 0.9% Sodium Chloride 1,000 ML IV ONE (14:20)
[2016-12-11] MEDS ORDERED: Labetalol 5 mg/mL 4 mL Inj IVPUSH ONE (14:20)
--- NOTE | 2016-12-11 14:22 | PCM.PNMED ---
Subjective Date of Service Dec 11, 2016 Subjective Albert Johnson is a 71 yo [place] man with Hyperlipidemia, Diabetes type 2 , presenting to [facility] emergency department with family who interprets who presented for chest pain in the setting of very uncontrolled diabetes.Patient is currently being treated for pneumonia. Patient is feeling remarkably better today. No cough, fever, chills, nausea, vomiting, or other review of systems. Patient was eating pancakes with syrup as well as many other carbohydrate rich entities. He gives the impression that he does not understand his diabetes. Recent echo and pharmacologic stress test with imaging were both relatively unremarkable. Exam Vital Signs Vital Sign - Last Date Time Temp Pulse Resp B/P Pulse Ox O2 Delivery O2 Flow Rate FiO2 12/11/16 13:15 76 20 95 12/11/16 12:12 37.1 172/78 Room Air Intake and Output 12/10/16 12/10/16 12/11/16 Cumulative From/Thru 15:00 23:00 07:00 12/08/16 21:57 - 12/11/16 05:21 Intake Total 1335 ml 200 ml 4722 ml Output Total 200 ml 2150 ml Balance 1335 ml 0 ml 2572 ml Intake Oral 800 ml 200 ml 2136 ml IV Total 535 ml 2586 ml Output Urine Total 200 ml 2150 ml # Voids 4 5 # Bowel Movements 1 0 1 Exam General: Alert, Oriented X3, Cooperative, No acute Distress Eyes: PERRLA, Scleral Anicteric Respiratory: Expiratory wheezing with mild rhonchi in the left lower lobe Cardiovascular: Regular rate and rhythm Abdomen: Soft, Mildy tender in epigastric area. Non-distended, Normoactive bowel tones. Extremities: No edema, no cyanosis, no clubbing. bilateral toe amputations at left 2nd digit and right first digit without any ulcers Neurological: Grossly neurologically intact, Normal Speech, Sensation Intact IVs and Medications Medications Reviewed: Medications were reviewed in detail Lab and Diagnostics Result Diagram: 12/11/165 12/11/16434 X-Rays, CTs and MRIs PROCEDURE: X-RAY CHEST ONE VIEW, PORTABLE 1. No acute cardiopulmonary disease. Approved by: Guanaco Garcia M.D. on 12/09/2016 at 8:15 PROCEDURE: 1 DAY PHARMACOLOGICAL STRESS TEST IMPRESSION: 1. Normal myocardial perfusion study for ischemia. Mildly decreased tracer uptake within the basal inferior wall normalizes on prone imaging, therefore consistent with diaphragmatic attenuation artifact rather than true pathology. 2. Normal left ventricle cavity size, without segmental wall motion abnormalities. The calculated left ventricle ejection fraction is within normal limits. 3. Expected hemodynamic response to pharmacologic stress testing. Approved by: Gage Scott M.D. on 12/09/2016 at 17:09 PROCEDURE: CT CHEST, ABDOMEN AND PELVIS WTIH CONTRAST IMPRESSION: 1. Patchy airspace opacities in the left upper lobe suspicious for pneumonia. 2. 4 mm right lower lobe nodule. Recommend followup imaging based on criteria outlined below. 3. Small hiatal hernia. 4. Atherosclerosis. 5. 7 mm left thyroid nodule. Fleischner Society criteria for SOLID lung nodule followup. Nodule size (mm)Low-risk patientHigh-risk patient<6 (single or multiple)No routine followup.Optional CT at 12 months. 6-8 (single or multiple)CT at 6-12 months, then optional CT at 18-24 mo.CT at 6-12 months, then CT at 18-24 months. >8 (single)CT, PET-CT, or biopsy at 3 months. Same as for low-risk pts. >8 (multiple)CT at 3-6 months, then optional CT at 18-24 mo.CT at 3-6 months, then CT at 18-24 months. Recommendations do not apply to lung cancer screening, patients with immunosuppression, or patients with known primary cancer. Approved by: Zoraida Santana MD, PhD on 12/10/2016 at 8:20 Cardiac Echo Impressions Echocardiogram Report Interpretation Summary Left ventricular wall thickness is mildly increased. The ejection fraction is estimated to be 60-65%. There is a trace or physiologic amount of tricuspid regurgitation. The right ventricular systolic pressure is estimated at 48 mmHg assuming a right atrial pressure of 3 mm Hg. Electronically signed by: Venkata Munroe on Reading Physician:12/09/2016 10:55 AM Assessment & Plan Albert Johnson is a 71 yo [place] man with Hyperlipidemia, Diabetes type 2 , presenting to [facility] emergency department c/o sharp substernal Chest pain Community acquired pneumonia; active - CT scan shows left upper lobe infiltrate and patient reports nonproductive coughing - Sputum culture, viral PCR, Strep pneumo antigen, and legionella antigen negative - Continued Ceftriaxone 2 g every 24 hours and azithromycin 500 mg once daily - DuoNebs every 6 hours while awake Gastroesophageal reflux disease, likely chronic, resolved - Pt also reported nausea and has epigastric tenderness on exam. Small hiatal hernia seen on CT - Famotidine 20 mg BID Diabetes Type 2 with peripheral neuropathy: Stable - high dose correctional Lispro algorithm with 10 units insulin glargine at bedtime - HgbA1c 12.9% - At discharge referral to diabetic education as well as endocrinology and PCP Uncontrolled Hypertension. Present on admission: Ongoing Likely due to non compliance with medications and low sodium diet - Amlodipine 10 mg once daily - Started lisinopril 10 once kidney function improves - Labetalol 20mg for SBP >170 Possible Acute on chronic Kidney injury. Present on admission; ?worsening Due to pre renal azotemia. Possible Chronic kidney disease due to Diabetic nephropathy and Hypertensive nephrosclerosis Unclear of baseline renal function - hold off on Lisinopril for the moment - 1L NS today Acute Chest pain. Present on admission, resolved. Etiology unclear but most likely secondary to pneumonia and GERD. - lipase negative - Echo and stress test negative - Mild troponin elevation likely due to TRAE Elevated troponin. Present on admission In the setting of elevated Cr with renal disease. -complete echocardiogram and stress test as above Hyperlipidemia - checking lipids - switched to atorvastatin 10 mg at bedtime from home simvastatin Left thyroid nodule and right lower lobe lung nodule visualized on CT scan - Follow up as outpatient - Acetaminophen as needed for mild pain/fever/headache - Bowel regimen as needed - Antiemetic as needed Disposition: Likely discharge tomorrow to home pending kidney function with close follow-up to diabetic education, primary care, and endocrinology for control of his diabetes. Patient should be on lisinopril/losartan but currently difficult to tell if he has acute kidney injury. Pain Evaluation: Adequate Pain Control Resuscitation Status: CPR: Attempt Resuscitation Attending Statement The patient was seen and examined together with Dr. Tirado on 12/11/2016 and I agree with the history, exam and plan as outlined in the note above. . Bill Tirado DO Dec 11, 2016 14:22 Jean Butts MD Dec 12, 2016 09:11
--- NOTE | 2016-12-11 20:43 | NUR ---
Activity/BG/Afebrile/Liter NS admin as ordered. Up in room & ambulating in lewis with family. Improving strength, now more steady on feet. BGs 177 / 240 / 308; sliding scale coverage.
[2016-12-11] MEDS: Insulin GLARgine 100 Unit/mL Syringe SUBQ SCH (22:10)
[2016-12-12] VITALS (10 sets, daily range): BP systolic 135–160; BP diastolic 68–89; PULSE 79–102; RESP 15–24; O2SAT 95–100
[2016-12-12] MEDS: Sodium Chloride LOK Flush 10 mL Syringe IVFLUSH SCH ×3 (00:39→17:05)
[2016-12-12] MEDS: Heparin 5,000 Unit/mL Inj SUBQ SCH ×3 (00:39→17:05)
--- NOTE | 2016-12-12 05:23 | NUR ---
Temperature/Pain/Activity Pt has remained afebrile throughout the shift. Pt has had no c/o pain throughout the shift. Pt was up and ambulated in hallway with cane with no s/s of weakness. Pt does have a slightly unsteady gait.
[2016-12-12 07:13] LABS: BASOPHILS % (AUTO) 0.9 % (0-3); EOSINOPHILS % (AUTO) 6.1 % (0-5); MONOCYTES % (AUTO) 9.6 % (4-12); Mean Corpuscular Hemoglobin 26.9 pg (27.0-35.0); Mean Corpuscular Volume 79.6 fL (81-100); NEUTROPHILS % (AUTO) 54.7 % (40-74); Platelet Count 229 bil/L (150-400)
[2016-12-12] MEDS: Insulin LISPRO 300 Unit/3 mL Inj SUBQ SCH ×4 (07:45→21:02)
[2016-12-12] MEDS: Albuterol-Ipratropium 3 mL Inhalation Solution NEB SCH ×4 (09:40→20:28)
[2016-12-12] MEDS: cefTRIAXone Inj 2,000 MG in Dextrose 5% Minibag Plus 50 ML IV SCH (12:16)
--- NOTE | 2016-12-12 18:04 | PCM.PNMED ---
Subjective Date of Service Dec 12, 2016 Subjective Albert Johnson is a 71 yo [place] man with Hyperlipidemia, Diabetes type 2 , presenting to [facility] emergency department with family who interprets who presented for chest pain. He reports feeling much better today. He is coughing but it has improved. He does have chest pain or nausea. Discussed diabetes management with patient using audio [place] attorney at law Dano [email or web address]. Exam Vital Signs Vital Sign - Last Date Time Temp Pulse Resp B/P Pulse Ox O2 Delivery O2 Flow Rate FiO2 12/12/16 17:16 86 16 95 Room Air 12/12/16 17:00 36.8 135/74 Intake and Output 12/11/16 12/11/16 12/12/16 Cumulative From/Thru 15:00 23:00 07:00 12/08/16 21:57 - 12/12/16 06:41 Intake Total 400 ml 879 ml 6001 ml Output Total 400 ml 2550 ml Balance 400 ml 479 ml 3451 ml Intake Oral 400 ml 200 ml 2736 ml IV Total 679 ml 3265 ml Output Urine Total 400 ml 2550 ml # Voids 3 8 # Bowel Movements 0 1 Exam General: Alert, Oriented X3, Cooperative, No acute Distress Eyes: PERRLA, Scleral Anicteric Mouth: Mouth Normal, Mucous Membranes Moist/[place] Neck: Supple, no Thyromegaly, trachea central. Chest & Lungs: Diffuse coarse rhonchi left lung golden without wheezing or rales. Cardiovascular: Normal S1, Normal S2, No Murmurs/Rubs/Gallops, Regular Rate/ Rhythm, (No JVD, no peripheral edema) Abdomen: Soft, Mildly tender in epigastric area. Non-distended, Normoactive bowel tones. Musculoskeletal: Unremarkable. Normal range of motion, no swollen or erythematous joints Extremities: No edema, no cyanosis, no clubbing. bilateral toe amputations at left 2nd digit and right first digit without any ulcers with dry skin Skin: No rashes. Warm and dry, no erythematous areas Neurological: Grossly neurologically intact, Normal Speech, Sensation Intact IVs and Medications Medications Reviewed: Medications were reviewed in detail Lab and Diagnostics Result Diagram: 12/12/16 0510 12/12/16 0510 X-Rays, CTs and MRIs PROCEDURE: X-RAY CHEST ONE VIEW, PORTABLE 1. No acute cardiopulmonary disease. Approved by: Guanaco Garcia M.D. on 12/09/2016 at 8:15 PROCEDURE: 1 DAY PHARMACOLOGICAL STRESS TEST IMPRESSION: 1. Normal myocardial perfusion study for ischemia. Mildly decreased tracer uptake within the basal inferior wall normalizes on prone imaging, therefore consistent with diaphragmatic attenuation artifact rather than true pathology. 2. Normal left ventricle cavity size, without segmental wall motion abnormalities. The calculated left ventricle ejection fraction is within normal limits. 3. Expected hemodynamic response to pharmacologic stress testing. Approved by: Gage Scott M.D. on 12/09/2016 at 17:09 PROCEDURE: CT CHEST, ABDOMEN AND PELVIS WT CONTRAST IMPRESSION: 1. Patchy airspace opacities in the left upper lobe suspicious for pneumonia. 2. 4 mm right lower lobe nodule. Recommend followup imaging based on criteria outlined below. 3. Small hiatal hernia. 4. Atherosclerosis. 5. 7 mm left thyroid nodule. Fleischner Society criteria for SOLID lung nodule followup. Nodule size (mm)Low-risk patientHigh-risk patient<6 (single or multiple)No routine followup.Optional CT at 12 months. 6-8 (single or multiple)CT at 6-12 months, then optional CT at 18-24 mo.CT at 6-12 months, then CT at 18-24 months. >8 (single)CT, PET-CT, or biopsy at 3 months. Same as for low-risk pts. >8 (multiple)CT at 3-6 months, then optional CT at 18-24 mo.CT at 3-6 months, then CT at 18-24 months. Recommendations do not apply to lung cancer screening, patients with immunosuppression, or patients with known primary cancer. Approved by: Zoraida Santana MD, PhD on 12/10/2016 at 8:20 Cardiac Echo Impressions Echocardiogram Report Interpretation Summary Left ventricular wall thickness is mildly increased. The ejection fraction is estimated to be 60-65%. There is a trace or physiologic amount of tricuspid regurgitation. The right ventricular systolic pressure is estimated at 48 mmHg assuming a right atrial pressure of 3 mm Hg. Electronically signed by: Venkata Munroe on Reading Physician:12/09/2016 10:55 AM Assessment & Plan Albert Johnson is a 71 yo Finnish man with Hyperlipidemia, Diabetes type 2 , presenting to [facility] emergency department c/o sharp substernal Chest pain Community acquired pneumonia; improving - CT scan shows left upper lobe infiltrate and patient reports nonproductive coughing - Sputum culture, viral PCR, Strep pneumo antigen, and legionella antigen negative - Continued Ceftriaxone 2 g every 24 hours and azithromycin 500 mg once daily - DuoNebs every 6 hours while awake Gastroesophageal reflux disease, likely chronic, resolved - Pt also reported nausea and has epigastric tenderness on exam. Small hiatal hernia seen on CT - Famotidine 20 mg BID Diabetes Type 2 with peripheral neuropathy: Stable - high dose correctional Lispro algorithm with 10 units insulin glargine at bedtime - HgbA1c 12.9% - Discussed in detail with patient and patient's grandson using audio [place] attorney at law about importance of using insulin regularly and eating a well-balanced diet with lean protein, fresh vegetables, and limited carbohydrates as well as decreasing fast food. - At discharge referral to diabetic education as well as endocrinology and PCP Uncontrolled Hypertension. Present on admission: Ongoing Likely due to non compliance with medications and low sodium diet - Amlodipine 10 mg once daily - Started lisinopril 10 mg once daily - PRN Labetalol 20mg for SBP >170 Possible Acute on chronic Kidney injury. Present on admission; stable Due to pre renal azotemia. Possible Chronic kidney disease due to Diabetic nephropathy and Hypertensive nephrosclerosis Unclear of baseline renal function - Continue to monitor as outpatient Acute Chest pain. Present on admission, resolved. Etiology unclear but most likely secondary to pneumonia and GERD. - lipase negative - Echocardiogram and stress test negative - Mild troponin elevation likely due to TRAE Elevated troponin. Present on admission In the setting of elevated Cr with renal disease. -complete echocardiogram and stress test as above Hyperlipidemia - LDL 54, HDL 28 - switched to atorvastatin 10 mg at bedtime from home simvastatin Left thyroid nodule and right lower lobe lung nodule visualized on CT scan - Follow up as outpatient - Acetaminophen as needed for mild pain/fever/headache - Bowel regimen as needed - Antiemetic as needed Disposition: Likely discharge tomorrow to home pending kidney function with close follow-up to diabetic education, primary care, and endocrinology for control of his diabetes. Resuscitation Status: CPR: Attempt Resuscitation Time spent 60 minutes Attending Statement The patient was seen and examined together with Dr. Kline on 12/12/16 and I have added additional information to the note above. Lita Kline DO Dec 12, 2016 18:04 Kellee Nagel DO Dec 16, 2016 12:48
--- NOTE | 2016-12-12 18:09 | NUR ---
Diabetic Education/ Blood glucose Using a Lisette electrolytic de scaler via video electrolytic de scaler the hospitalist team met with patient and grandson and went over diabetes management and diet. Patient verbalized understanding. Patients blood sugars have ranged from 98-300s. Will continue to reinforce teaching wtih patient and family
[2016-12-12] MEDS: Insulin GLARgine 100 Unit/mL Syringe SUBQ SCH (21:07)
[2016-12-13] VITALS (10 sets, daily range): BP systolic 149–179; BP diastolic 75–91; PULSE 71–94; RESP 18–24; O2SAT 96–100
[2016-12-13] MEDS: Heparin 5,000 Unit/mL Inj SUBQ SCH ×2 (00:04→09:42)
[2016-12-13] MEDS: Sodium Chloride LOK Flush 10 mL Syringe IVFLUSH SCH ×2 (00:07→09:40)
--- NOTE | 2016-12-13 02:32 | NUR ---
denies cp pt coop/pleasant, terri, up amb with sba, tele= sr, hr 80-90's, pt denies cp, bp stable, afebrile pt denies n/v pt denies generalized pain pt sob with exertion, hob up, sats on ra=97%, resp rate = 22-24, ls= exp wheezes, with course scattered rhonchi/crackles t/o, pt's resp status much improved since admit per report, pt appears comfortable at rest, ankles with mild pitting edema, trace/non pit edema to calf area, see assessment charting, pt's granson at bedside with pt t/o shift,
[2016-12-13 04:54] LABS: BASOPHILS % (AUTO) 0.5 % (0-3); EOSINOPHILS % (AUTO) 7.8 % (0-5); Mean Corpuscular Hemoglobin 26.1 pg (27.0-35.0); Mean Corpuscular Volume 81.4 fL (81-100); Platelet Count 228 bil/L (150-400)
[2016-12-13] MEDS: Albuterol-Ipratropium 3 mL Inhalation Solution NEB SCH ×2 (08:27→12:28)
[2016-12-13] MEDS: Insulin LISPRO 300 Unit/3 mL Inj SUBQ SCH ×2 (09:40→12:00)
[2016-12-13] MEDS ORDERED: AMLO10TA3 PO (10:13)
[2016-12-13] MEDS ORDERED: LISI-610 PO (10:13)
[2016-12-13] MEDS ORDERED: INSLIS SUBQ (10:13)
[2016-12-13] MEDS ORDERED: INSU100V7 SUBQ (10:13)
[2016-12-13] MEDS ORDERED: ASPI81TA3 PO (10:13)
[2016-12-13] MEDS ORDERED: AGM875T PO (10:13)
[2016-12-13] MEDS ORDERED: BLOO-204 MC (10:22)
[2016-12-13] MEDS ORDERED: ALBU8.5H2 INHALATION (10:24)
--- NOTE | 2016-12-13 10:24 | PCM.DIMED ---
Lita Kline DO 12/13/16 0805: Discharge Instructions Date of Service Dec 13, 2016 Dates of Hospitalization Dec 09, 2016 at 00:37 Discharge Diagnosis Discharge Diagnosis You have pneumonia (a lung infection), your blood pressure has been elevated, and your blood sugar levels have been high. Diet Discharge Diet: Diabetic Activity Discharge Activity: Limited until seen by PCP Call your provider Call your provider for: Fever or Chills, Shortness of breath, Bleeding, Chest pain, Vomitting, Excessive diarrhea, Weakness (unilateral) Patient Instructions Patient Instructions Continue antibiotics for pneumonia (lung infection). Take Augmentin (amoxicillin /clavulanate) 875 mg twice per day for 3 days starting tomorrow morning. You have also been given a prescription for an inhaler. You can use the albuterol inhaler by inhaling 2 puffs every 4 to 6 hours as needed for wheezing or cough. You also have been given a prescription for Tessalon Perles and you can take 1 capsule every 8 hours as needed for cough. Start insulin glargine (Lantus) 20 units at bedtime and insulin lispro (Humalog ) 2 units before breakfast, 2 units before lunch, and 8 units before dinner for your blood sugar. The lispro should be given 15-20 minutes before meals. Check you blood sugar 3 times per day and keep a log of your blood sugar levels and at what time they were taken and bring the log to your follow up appointment. Try to eat more fish and fresh vegetables and less rice, pancakes, and fast food. Walk 20-30 minutes every day after dinner. If you feel lightheaded, dizzy , or sweating, then please check your blood sugar level and seek medical attention. Start lisinopril 10 mg once daily and amlodipine 10 mg once daily for blood pressure. Stop furosemide. Continue simvastatin. Start aspirin 81 mg once daily in the morning for preventing heart disease and stroke. Follow up with your primary doctor, Dr. Mancini in 7-10 days to review your hospital stay and your blood sugar levels and blood pressure. Discuss checking your kidney function at your follow up appointment as well. Follow-up Provider: Zonia Mancini MD Follow-up with PCP in: 1 week Kellee Nagel DO 12/13/16 1902: Discharge Instructions Attending's Statement The patient was seen and examined together with Dr. Kline on 12/13/16 and I agree with the history, exam and plan as outlined in the note above. Lita Kline DO Dec 13, 2016 08:05 Kellee Nagel DO Dec 13, 2016 19:02
[2016-12-13] MEDS ORDERED: BENZ-12 PO (10:57)
[2016-12-13] MEDS: cefTRIAXone Inj 2,000 MG in Dextrose 5% Minibag Plus 50 ML IV SCH (11:51)
--- NOTE | 2016-12-13 13:30 | NUR ---
Discharge pt ordered for discharge home with family. discharge instructions and medications reviewed with patient and grandsons. pt/family denied questions regarding plan of care. pt offered wheelchair, deferred. escorted to main elevators, with all belongings and cane at about 1320.
--- NOTE | 2016-12-13 16:46 | PCM.DC.MED ---
Discharge Summary Date of Service Dec 13, 2016 Dates of Hospitalization Date of Hospital Admission Dec 09, 2016 at 00:37 Date of Discharge: Dec 13, 2016 Providers: Admitting Physician: Tres Plata MD Primary Care Physician: Zonia Mancini MD Attending Physician: Tres Plata MD Diagnosis at Time of Discharge Diagnosis at Time of Discharge Community acquired pneumonia Gastroesophageal reflux disease Diabetes Type 2 with peripheral neuropathy Uncontrolled Hypertension Possible Acute on chronic Kidney injury Acute Chest pain Elevated troponin Hyperlipidemia Left thyroid nodule and right lower lobe lung nodule Procedures XRay, CTs & MRIs PROCEDURE: X-RAY CHEST ONE VIEW, PORTABLE 1. No acute cardiopulmonary disease. Approved by: Guanaco Garcia M.D. on 12/09/2016 at 8:15 PROCEDURE: 1 DAY PHARMACOLOGICAL STRESS TEST IMPRESSION: 1. Normal myocardial perfusion study for ischemia. Mildly decreased tracer uptake within the basal inferior wall normalizes on prone imaging, therefore consistent with diaphragmatic attenuation artifact rather than true pathology. 2. Normal left ventricle cavity size, without segmental wall motion abnormalities. The calculated left ventricle ejection fraction is within normal limits. 3. Expected hemodynamic response to pharmacologic stress testing. Approved by: Gage Scott M.D. on 12/09/2016 at 17:09 PROCEDURE: CT CHEST, ABDOMEN AND PELVIS WTIH CONTRAST IMPRESSION: 1. Patchy airspace opacities in the left upper lobe suspicious for pneumonia. 2. 4 mm right lower lobe nodule. Recommend followup imaging based on criteria outlined below. 3. Small hiatal hernia. 4. Atherosclerosis. 5. 7 mm left thyroid nodule. Fleischner Society criteria for SOLID lung nodule followup. Nodule size (mm)Low-risk patientHigh-risk patient<6 (single or multiple)No routine followup.Optional CT at 12 months. 6-8 (single or multiple)CT at 6-12 months, then optional CT at 18-24 mo.CT at 6-12 months, then CT at 18-24 months. >8 (single)CT, PET-CT, or biopsy at 3 months. Same as for low-risk pts. >8 (multiple)CT at 3-6 months, then optional CT at 18-24 mo.CT at 3-6 months, then CT at 18-24 months. Recommendations do not apply to lung cancer screening, patients with immunosuppression, or patients with known primary cancer. Approved by: Zoraida Santana MD, PhD on 12/10/2016 at 8:20 Cardiac Echo Impression Echocardiogram Report Interpretation Summary Left ventricular wall thickness is mildly increased. The ejection fraction is estimated to be 60-65%. There is a trace or physiologic amount of tricuspid regurgitation. The right ventricular systolic pressure is estimated at 48 mmHg assuming a right atrial pressure of 3 mm Hg. Electronically signed by: Venkata Munroe on Reading Physician:12/09/2016 10:55 AM Brief History From the history and physical performed by Dr. Tres Plata on 12/09/2016: Albert Johnson is a 71 yo [place] man with Hyperlipidemia, Diabetes type 2 , presenting to [facility] emergency department with family who interprets c/o sharp substernal CP onset this morning. Patient noted to be poor historian and family reporting changing stories. Chest pain was reported to be sharp, substernal but patient also pointing to his upper abdomen with no radiation. Intensity was mild with no clear exacerbating or alleviating factors. There is some reported coughing with some subjective fever. He has never experienced this type of pain before. He also complained of body aches He recently traveled from the [facility] 1 month ago and a doctor there apparently told him he had "fluid in his lungs" about 2 months ago. He has no personal or family history of cardiovascular disease. Case discussed with Dr Jasso, some troponin elevation. Plan to admit patient to trend troponin overnight. Hospital Course Albert Johnson is a 71 yo [place] man with Hyperlipidemia, Diabetes type 2 who presented to [facility] emergency department c/o sharp substernal chest pain. He had an echocardiogram and pharmacological stress test, which were unremarkable. His chest pain resolved, but he continued to have a cough, nausea , and epigastric discomfort. He also developed fever and tachycardia. A CT chest , abdomen, and pelvis was performed and showed a left upper lobe infiltrate. He was treated with ceftriaxone and azithromycin for 4 days and discharged with Augmentin for an additional 3 days. His HgbA1c was 12.9% and his blood glucose level was elevated in the evening. He was restarted on insulin. His blood pressure was hypertensive during his hospital stay, and he was started on anti- hypertensives. Hospital course see below: Community acquired pneumonia; improving - CT scan showed left upper lobe infiltrate and patient reports nonproductive coughing - Sputum culture, viral PCR, Strep pneumo antigen, and legionella antigen were negative - Continued Ceftriaxone 2 g every 24 hours and azithromycin 500 mg once daily - DuoNebs every 6 hours while awake were given - He was discharged with Augmentin for 3 days, an albuterol inhaler as needed, and Tessalon Perles as needed. Gastroesophageal reflux disease, likely chronic, resolved - Pt also reported nausea and had epigastric tenderness on exam. Small hiatal hernia seen on CT. - Famotidine 20 mg BID was given during hospital stay. 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 - His glargine was increased to 20 units at bedtime, and Lispro nutritional was started at 2 units before breakfast and lunch and 8 units before dinner at discharge. - Consider endocrinology referral Uncontrolled Hypertension. Present on admission: Ongoing Likely due to non compliance with medications and low sodium diet - Amlodipine 10 mg once daily - Started lisinopril 10 mg once daily Possible Acute on chronic Kidney injury. Present on admission; stable Due to pre renal azotemia. Possible Chronic kidney disease due to Diabetic nephropathy and Hypertensive nephrosclerosis Unclear of baseline renal function - Continue to monitor as outpatient and recommend repeat BMP in 1 week Acute Chest pain. Present on admission, resolved. Etiology unclear but most likely secondary to pneumonia and GERD in setting of TRAE. - lipase negative - Echocardiogram and stress test negative Elevated troponin. Present on admission In the setting of elevated Cr with renal disease. -Complete echocardiogram and stress test as above Hyperlipidemia - LDL 54, HDL 28 - Continued statin therapy Left thyroid nodule and right lower lobe lung nodule visualized on CT scan - Follow up as outpatient Exam Vital Signs (Last) Date Time Temp Pulse Resp B/P Pulse Ox O2 Delivery O2 Flow Rate FiO2 12/13/16 12:28 87 18 96 Room Air 12/13/16 11:48 36.7 149/75 Exam General: Alert, Oriented X3, Cooperative, No acute Distress Eyes: PERRLA, Scleral Anicteric Mouth: Mouth Normal, Mucous Membranes Moist/[place] Neck: Supple, no Thyromegaly, trachea central. Chest & Lungs: Diffuse coarse rhonchi left lung golden without wheezing or rales. Cardiovascular: Normal S1, Normal S2, No Murmurs/Rubs/Gallops, Regular Rate/ Rhythm, (No JVD, no peripheral edema) Abdomen: Soft, Mildly tender in epigastric area. Non-distended, Normoactive bowel tones. Musculoskeletal: Unremarkable. Normal range of motion, no swollen or erythematous joints Extremities: No edema, no cyanosis, no clubbing. bilateral toe amputations at left 2nd digit and right first digit without any ulcers with dry skin Skin: No rashes. Warm and dry, no erythematous areas Neurological: Grossly neurologically intact, Normal Speech, Sensation Intact Test 12/08/16 21:15 12/09/16 00:30 12/09/16 02:47 12/09/16 05:57 D-Dimer 0.58mg/L FEU (<0.50) Magnesium Level 2.0mg/dL (1.6-2.6) Pro-B-Type Natriuretic Peptide 539.7pg/mL (0-376) Hold Ramos Top Tube Received (Received) Hemoglobin A1c 12.9% (4.8-5.6) Lipase 23U/L (13-60) Thyroid Stimulating Hormone (TSH) 3.380uIU/mL (0.450-4.500) Urine Color Straw (YELLOW) Urine Appearance Clear (CLEAR,HAZY) Urine pH 6.0 (5.0-8.0) Urine Specific [place] 1.005 (1.003-1.035) Urine Protein Negativemg/dL (NEG,TRACE) Urine Glucose (UA) Negativemg/dL (NEGATIVE) Urine Ketones Negativemg/dL (NEGATIVE) Urine Occult Blood Trace (NEGATIVE) Urine Nitrite Negative (NEGATIVE) Urine Bilirubin Negative (NEGATIVE) Urine Urobilinogen Normalmg/dL (NORMAL) Urine Leukocyte Esterase Negative (NEGATIVE) Urine RBC 0-2/hpf (0-2) Urine WBC 0-5/hpf (0-5) Urine Epithelial Cells Occasional/hpf (NONE-MOD) Urine Crystals None seen (NONE SEEN) Urine Bacteria None/hpf (NONE-FEW) Urine Hyaline Casts None/lpf (NONE) Urine Granular Casts None seen (NONE SEEN) Urine Waxy Casts None seen (NONE SEEN) Urine Red Blood Cell Casts None seen (NONE SEEN) Urine White Blood Cell Casts None seen (NONE SEEN) Urine Mucus None seen (None Seen) Urine Trichomonas None seen (NONE SEEN) Urine Yeast None (NONE SEEN) Urine Culture Reflexed Not indicated Urine Legionella pneumophilia Ag Negative (Negative) Total Creatine Kinase 267U/L (21-232) Creatine Kinase MB 3.7ng/mL (0.0-10.4) Creatine Kinase MB % % (0.0-5.0) Test 12/09/16 13:45 12/09/16 19:28 12/10/16 04:20 12/11/16 04:35 Troponin T 0.016ug/L (0.0-0.011) Lactic Acid Level 1.6mmol/L (0.4-2.0) Triglycerides Level 102mg/dL (0-149) Cholesterol Level 103mg/dL (100-199) LDL Cholesterol, Calculated 54.600mg/dL (0-99) VLDL Cholesterol 20.400mg/dL HDL Cholesterol 28mg/dL (>39) Cholesterol/HDL Ratio 3.68 (0.0-4.4) Total Bilirubin 0.4mg/dL (0.0-1.2) Aspartate Amino Transf (AST/SGOT) 27U/L (0-50) Alanine Aminotransferase (ALT/SGPT) 14U/L (0-44) Alkaline Phosphatase 58U/L (25-160) Total Protein 6.5g/dL (6.4-8.4) Albumin 3.1g/dL (3.4-5.0) Test 12/11/16 09:20 12/13/16 04:39 Hold Urine Received (Received) White Blood Count 5.9th/mm3 (3.8-10.1) Red Blood Count 4.67mil/mm3 (4.40-5.80) Hemoglobin 12.2g/dL (13.8-17.2) Hematocrit 38.0% (41.0-50.0) Mean Corpuscular Volume 81.4fL (81-100) Mean Corpuscular Hemoglobin 26.1pg (27.0-35.0) Mean Corpuscular Hemoglobin Concent 32.1% (32.0-37.0) Red Cell Distribution Width 14.4% (12.3-15.4) Platelet Count 228bil/L (150-400) Neutrophils (%) (Auto) 51.0% (40-74) Lymphocytes (%) (Auto) 31.4% (14-46) Monocytes (%) (Auto) 9.0% (4-12) Eosinophils (%) (Auto) 7.8% (0-5) Basophils (%) (Auto) 0.5% (0-3) Sodium Level 139mEq/L (134-144) Potassium Level 4.2mEq/L (3.5-5.2) Chloride Level 104mEq/L (97-108) Carbon Dioxide Level 23mmol/L (18-29) Blood Urea Nitrogen 15mg/dL (8-27) Creatinine 1.39mg/dL (0.76-1.27) Estimat Glomerular Filtration Rate 54mL/min (>59) Glucose Level 238mg/dL (60-99) Calcium Level 8.6mg/dL (8.5-10.1) Procalcitonin 0.25ng/mL (0.00-0.08) Discharge Medications Discharge Medications Amlodipine (Amlodipine) 10 Mg Tablet 10 MG PO DAILY Prescribed by: LITA KLINE DO Amoxicillin/Clav K 875-125 mg (Amoxicillin/Clav K 875-125 mg) 875 Mg Tab 1 TABLET PO BID Prescribed by: LITA KLINE DO Aspirin Chew (Aspirin Chew) 81 Mg Chew 81 MG PO DAILY Prescribed by: LITA KLINE DO Insulin Glargine (Lantus U100 Insulin Vial) 100 Unit/Ml Vial 20 UNIT SUBQ HS Prescribed by: LITA KLINE DO Insulin Human Lispro (HumaLOG U100 Insulin Vial) 100 Unit/Ml Unit 2-8 UNIT SUBQ TIDWM Check blood sugars before meals and at bedtime. Use correction factor only before meals. Blood Sugar Lispro Correction: <151, 0 units; 151-175, 1 unit; 176-200, 2 units; 201-225, 3 units; 226-250, 4 units; 251-275, 5 units; 276-300 , 6 units; 301-325, 7 units; 326-350, 8 units; 351-375, 9 units; 376-400, 10 units; >400, 12 units. Prescribed by: LITA KLINE DO Lisinopril (Zestril) 10 Mg Tablet 10 MG PO DAILY Prescribed by: LITA KLINE DO As needed Albuterol HFA (Proair HFA) 8.5 Gm Hfa.aer.ad 2 PUFFS INHALATION Q4H PRN PRN For Wheezing Prescribed by: LITA KLINE DO Benzonatate (Tessalon Perle) 100 Mg Capsule 100 MG PO TID PRN PRN For Cough Prescribed by: LITA KLINE DO Simvastatin (Simvastatin) 20 Mg Tablet 20 MG PO HS PRN PRN For Cholesterol ( Reported) Durable Medical Equipment Blood-Glucose Meter, Drum-Type (Accu-Chek) 1 Each Kit 1 EACH [facility] TID (DME) Prescribed by: LITA KLINE DO Followup Plan Discharge Diet: Diabetic Discharge Activity: Limited until seen by PCP Patient Instructions Continue antibiotics for pneumonia (lung infection). Take Augmentin (amoxicillin /clavulanate) 875 mg twice per day for 3 days starting tomorrow morning. You have also been given a prescription for an inhaler. You can use the albuterol inhaler by inhaling 2 puffs every 4 to 6 hours as needed for wheezing or cough. You also have been given a prescription for Tessalon Perles and you can take 1 capsule every 8 hours as needed for cough. Start insulin glargine (Lantus) 20 units at bedtime and insulin lispro (Humalog ) 2 units before breakfast, 2 units before lunch, and 8 units before dinner for your blood sugar. The lispro should be given 15-20 minutes before meals. Check you blood sugar 3 times per day and keep a log of your blood sugar levels and at what time they were taken and bring the log to your follow up appointment. Try to eat more fish and fresh vegetables and less rice, pancakes, and fast food. Walk 20-30 minutes every day after dinner. If you feel lightheaded, dizzy , or sweating, then please check your blood sugar level and seek medical attention. Start lisinopril 10 mg once daily and amlodipine 10 mg once daily for blood pressure. Stop furosemide. Continue simvastatin. Start aspirin 81 mg once daily in the morning for preventing heart disease and stroke. Follow up with your primary doctor, Dr. Mancini in 7-10 days to review your hospital stay and your blood sugar levels and blood pressure. Discuss checking your kidney function at your follow up appointment as well. Follow-up Provider: Zonia Mancini MD Follow-up with PCP in: 1 week Time spent Greater than 35 minutes Attending Statement The patient was seen and examined together with Dr. Kline on 12/13/16 and I have added additional information to the note above. copies to: oZnia Mancini MD, Marissa L DO Dec 13, 2016 16:43 Kellee Nagel DO Dec 13, 2016 18:55 attention. Start lisinopril 10 mg once daily and amlodipine 10 mg once daily for blood pressure. Stop furosemide. Continue simvastatin. Start aspirin 81 mg once daily in the morning for preventing heart disease and stroke. Follow up with your primary doctor, Dr. Mancini in 7-10 days to review your hospital stay and your blood sugar levels and blood pressure. Discuss checking your kidney function at your follow up appointment as well. Follow-up Provider: Zonia Mancini MD Follow-up with PCP in: 1 week Lita Kline DO Dec 13, 2016 16:43
--- NOTE | 2016-12-13 17:08 | NUR ---
Social Work Note: Discharge Data& Assessment: Per pt is medically ready to discharge home via POV. SW met with pt and pt grandson at bedside to confirm discharge plan and assess for any unmet needs. Albert Johnson is a 71 year old male admitted on 12/09/2016 for chest pain. Per pt is medically improved and ready to discharge home via POV. Pt grandson to transport pt home today. Pt grandson denies any other needs. No other discharge needs identified. All updated and agreeable to plan. Plan: Per pt is medically ready to discharge home via POV. Pt grandson denies any other needs. No other discharge needs identified. All updated and agreeable to plan. KILEY Chapman
== END 2016-12-13 13:41 | disposition home or self-care (01) | DRG 194 ==
LOC: SED 21:45 → OBSVTOIN 12-09 00:37 → PCC 12-09 00:37
PROVIDERS: ADMIT Hospitalist; ATTEND Hospitalist
DX: J18.9 Pneumonia, unspecified organism (principal); N17.9 Acute kidney failure, unspecified; E11.42 Type 2 diabetes mellitus with diabetic polyneuropathy; E11.65 Type 2 diabetes mellitus with hyperglycemia; I10 Essential (primary) hypertension; K21.9 Gastro-esophageal reflux disease without esophagitis; E78.5 Hyperlipidemia, unspecified; R91.8 Other nonspecific abnormal finding of lung field; Z91.19 Patient's noncompliance with other medical treatment and regimen; Z89.422 Acquired absence of other left toe(s); Z89.421 Acquired absence of other right toe(s); Z79.4 Long term (current) use of insulin; Z79.82 Long term (current) use of aspirin